=== PATIENT | male | born 1985 | race Two or more races ===

== ENCOUNTER → 2020-04-18 | Emergency (ER) | payer MEDICAID, OTHER ==
[~2020-04-18] VITALS: Ht 147.3 cm; Wt 49.9 kg
[2020-04-18 22:20] VITALS: BP 125/88
== END | disposition left against medical advice (07) ==
LOC: ER 22:02
DX: R09.89 Other specified symptoms and signs involving the circulatory and respiratory systems (principal); G80.9 Cerebral palsy, unspecified

== ENCOUNTER 2020-10-31 11:00 | Emergency (ER) | payer OTHER ==
[~2020-10-31] VITALS: Ht 152.4 cm; Wt 40.8 kg
[2020-10-31] MEDS ORDERED: SODIUM CHLORIDE 0.9% 1,000 ML IV ONE (11:30)
[2020-10-31 11:59] LABS: Basophils # (auto) 0 10 ^3/uL (0-0.2); Basophils % (auto) 0.7 % (0.0-2.0); Eosinophils # (auto) 0 10 ^3/uL (0-0.8); Eosinophils % (auto) 0.1 % (0.0-7.0); Lymphocytes % (auto) 13.2 % (10.0-50.0); Mean Corpuscular Hemoglobin 33.7 pg (28.0-32.0); Mean Corpuscular Volume 93.6 fL (80.0-100.0); Monocytes # (auto) 0.4 10 ^3/uL (0-1.3); Monocytes % (auto) 5.6 % (0.0-12.0); Neutrophils % (auto) 80.4 % (37.0-80.0); Platelet Count (auto) 200 10^3/uL (140-450); Red Blood Cells 4.16 10^6/uL (4.5-5.90); Red Cell Distribution Width 14.5 % (11.8-14.3); White Blood Cell 7.5 10^3/uL (4.4-10.8)
[2020-10-31 12:27] LABS: Albumin 3.1 g/dL (3.4-5.0); Blood Urea Nitrogen 7 mg/dL (7-18); Calcium 8.3 mg/dL (8.5-10.1); Carbon Dioxide 26 mmol/L (21-32); Glucose 89 mg/dL (74-106)
[2020-10-31 12:40] LABS: Alanine Aminotransferase 33 U/L (16-61); Alkaline Phosphatase 73 U/L (45-117); Anion Gap 5 (5-15); Aspartate Aminotransferase 44 U/L (15-37); BUN/Creatinine Ratio 19.4; Bilirubin, Total 1.9 mg/dL (0.2-1.0); Chloride 107 mmol/L (98-107); GFR African American 356 mL/min; GFR Non-African American 294 mL/min; Potassium 3.3 mmol/L (3.5-5.1); Sodium 138 mmol/L (136-145); Total Protein 7.4 g/dL (6.4-8.2)
[2020-10-31 14:58] VITALS: BP 109/73
== END 2020-10-31 15:22 | disposition home or self-care (01) ==
LOC: ER 11:00 → EDBD 11:00 → ER 15:22
DX: G40.409 Other generalized epilepsy and epileptic syndromes, not intractable, without status epilepticus (principal)
CPT/HCPCS: 36415; 70450; 71045; 80053; 84484; 85025; 93005; 96360; 96361; 99285; J7030

== ENCOUNTER 2020-11-11 10:46 | Inpatient (IN) | payer OTHER ==
[~2020-11-11] VITALS: Ht 147.3 cm; Wt 36.5 kg
[2020-11-11 12:39] LABS: Basophils # (auto) 0.1 10 ^3/uL (0-0.2); Basophils % (auto) 0.7 % (0.0-2.0); Eosinophils # (auto) 0 10 ^3/uL (0-0.8); Eosinophils % (auto) 0.1 % (0.0-7.0); Hematocrit 39.8 % (41.0-53.0); Hemoglobin 14.1 g/dL (13.5-17.5); Mean Corpuscular Hemoglobin 33.8 pg (28.0-32.0); Mean Corpuscular Hgb Conc. 35.4 g/dL (32.0-36.0); Mean Corpuscular Volume 95.5 fL (80.0-100.0); Monocytes # (auto) 0.5 10 ^3/uL (0-1.3); Monocytes % (auto) 5.3 % (0.0-12.0); Neutrophils % (auto) 81.9 % (37.0-80.0); Nucleated Red Blood Cells % 0.1 %; Platelet Count (auto) 235 10^3/uL (140-450); Red Blood Cells 4.17 10^6/uL (4.5-5.90); Red Cell Distribution Width 14.8 % (11.8-14.3); White Blood Cell 8.6 10^3/uL (4.4-10.8)
[2020-11-11 12:57] LABS: Albumin 3.3 g/dL (3.4-5.0); Calcium 8.9 mg/dL (8.5-10.1); Magnesium 2.4 mg/dL (1.6-2.6); Potassium 3.3 mmol/L (3.5-5.1)
[2020-11-11 13:01] LABS: BUN/Creatinine Ratio 18.6; Bilirubin, Total 0.9 mg/dL (0.2-1.0)
[2020-11-11] MEDS ORDERED: LEV50T PO (14:01)
[2020-11-11] MEDS ORDERED: CARB200T4 PO (14:01)
[2020-11-11] MEDS ORDERED: BACL20TA PO (14:01)
[2020-11-11] MEDS ORDERED: SODIUM CHLORIDE 0.9% 1,000 ML IV ONE ×2 (14:45→15:15)
[2020-11-11] MEDS ORDERED: ONDANSETRON HCL 4 MG/2 ML VIAL IV PRN (15:15)
[2020-11-11] MEDS ORDERED: LORazepam 2MG/ML-1ML VIAL IV PRN (15:15)
[2020-11-11] MEDS ORDERED: MORPHINE SULF INJ 2 MG/ML SYRINGE 1ML IV PRN (15:15)
[2020-11-11] MEDS ORDERED: NITROGLYCERIN 0.4 MG SL TAB SL PRN (15:15)
[2020-11-11] MEDS: POTASSIUM CHL 20MEQ/100ML 100 ML IV SCH ×2 (16:43→17:15)
[2020-11-11] MEDS: SODIUM CHLORIDE 0.9% 1,000 ML IV SCH (16:43)
[2020-11-11 16:55] LABS: INR 1.13 (0.9-1.15); Partial Thromboplastin Time 31.1 sec (23.0-31.2)
[2020-11-11] MEDS ORDERED: CHOL20007 PO (17:31)
[2020-11-11 21:36] VITALS: BP 120/74
[2020-11-11 23:30] LABS: Potassium 3.5 mmol/L (3.5-5.1)
[2020-11-12 05:00] VITALS: BP 130/94
[2020-11-12 06:22] LABS: Basophils # (auto) 0 10 ^3/uL (0-0.2); Eosinophils # (auto) 0 10 ^3/uL (0-0.8); Lymphocytes # (auto) 0.9 10 ^3/uL (0.4-5.4); Monocytes # (auto) 0.3 10 ^3/uL (0-1.3); Neutrophils # (auto) 5.4 10 ^3/uL (1.6-8.6); Platelet Count (auto) 185 10^3/uL (140-450); White Blood Cell 6.7 10^3/uL (4.4-10.8)
[2020-11-12 06:24] LABS: Basophils % (auto) 0.5 % (0.0-2.0); Eosinophils % (auto) 0.5 % (0.0-7.0); Hematocrit 31.4 % (41.0-53.0); Hemoglobin 11.4 g/dL (13.5-17.5); Lymphocytes % (auto) 13.8 % (10.0-50.0); Mean Corpuscular Hgb Conc. 36.2 g/dL (32.0-36.0); Mean Corpuscular Volume 96.7 fL (80.0-100.0); Monocytes % (auto) 4.5 % (0.0-12.0); Neutrophils % (auto) 80.7 % (37.0-80.0); Nucleated Red Blood Cells % 0.1 %; Red Blood Cells 3.25 10^6/uL (4.5-5.90); Red Cell Distribution Width 14.7 % (11.8-14.3)
[2020-11-12 06:31] LABS: Albumin 2.6 g/dL (3.4-5.0); Calcium 7.7 mg/dL (8.5-10.1); Potassium 3.4 mmol/L (3.5-5.1)
[2020-11-12 06:34] LABS: BUN/Creatinine Ratio 28.6; Bilirubin, Total 0.9 mg/dL (0.2-1.0); Total Protein 6.3 g/dL (6.4-8.2)
[2020-11-12] MEDS: SODIUM CHLORIDE 0.9% 1,000 ML IV SCH ×4 (06:56→23:26)
[2020-11-12 08:04] VITALS: BP 112/72
[2020-11-12] MEDS ORDERED: PANTOPRAZOLE 40 MG/10 ML VIAL INJ IV SCH (10:00)
[2020-11-12] MEDS: ENOXAPARIN SOD 40 MG/0.4 ML SYRINGE SC SCH (10:09)
[2020-11-12] MEDS ORDERED: LIDOCAINE VISCOUS 2% 15ML UD ONE (10:12)
[2020-11-12] MEDS ORDERED: MIDAZOLAM HCL 5 MG/ML-1ML VIAL ONE (10:13)
[2020-11-12] MEDS ORDERED: diphenhdrAMINE HCL 50 MG/1 ML VL ONE (10:13)
[2020-11-12] MEDS ORDERED: fentaNYL CITRATE 100 MCG/2 ML VL ONE (10:13)
[2020-11-12] MEDS ORDERED: POTASSIUM CHLORIDE 20 MEQ, LIDOCAINE 1% (LOCAL ANESTH.) 2 ML in SODIUM CHL 0.9% 100 ML IV ONE (10:15)
[2020-11-12] MEDS ORDERED: ceFAZolin 1GM/50ML 50 ML IV ONE (11:02)
[2020-11-12] MEDS ORDERED: fentaNYL CITRATE 100 MCG/2 ML VL IV ONE ×2 (11:05→11:09)
[2020-11-12] MEDS ORDERED: MIDAZOLAM HCL 5 MG/ML-1ML VIAL IV ONE ×2 (11:05→11:09)
[2020-11-12 11:59] VITALS: BP 122/77
[2020-11-12 16:17] VITALS: BP 124/83
[2020-11-12 22:00] VITALS: BP 115/76
[2020-11-12] MEDS: PANTOPRAZOLE 40 MG/10 ML VIAL INJ IV SCH (23:26)
[2020-11-13 05:00] VITALS: BP 113/76
[2020-11-13 08:35] LABS: Basophils # (auto) 0.1 10 ^3/uL (0-0.2); Basophils % (auto) 0.7 % (0.0-2.0); Eosinophils # (auto) 0 10 ^3/uL (0-0.8); Eosinophils % (auto) 0.4 % (0.0-7.0); Hematocrit 38.9 % (41.0-53.0); Hemoglobin 13.5 g/dL (13.5-17.5); Lymphocytes % (auto) 12.8 % (10.0-50.0); Mean Corpuscular Hemoglobin 33.8 pg (28.0-32.0); Mean Corpuscular Hgb Conc. 34.7 g/dL (32.0-36.0); Mean Corpuscular Volume 97.2 fL (80.0-100.0); Monocytes # (auto) 0.3 10 ^3/uL (0-1.3); Monocytes % (auto) 3.5 % (0.0-12.0); Neutrophils # (auto) 6.3 10 ^3/uL (1.6-8.6); Neutrophils % (auto) 82.6 % (37.0-80.0); Nucleated Red Blood Cells % 0.2 %; Platelet Count (auto) 190 10^3/uL (140-450); Red Blood Cells 4.01 10^6/uL (4.5-5.90); Red Cell Distribution Width 14.7 % (11.8-14.3); White Blood Cell 7.7 10^3/uL (4.4-10.8)
[2020-11-13 08:42] LABS: Albumin 2.7 g/dL (3.4-5.0); BUN/Creatinine Ratio 19.2; Calcium 8.3 mg/dL (8.5-10.1); Potassium 3.7 mmol/L (3.5-5.1)
[2020-11-13 08:44] LABS: Bilirubin, Total 1.1 mg/dL (0.2-1.0); Total Protein 6.5 g/dL (6.4-8.2)
[2020-11-13 08:45] VITALS: BP 106/76
[2020-11-13] MEDS: SODIUM CHLORIDE 0.9% 1,000 ML IV SCH (09:46)
[2020-11-13] MEDS: PANTOPRAZOLE 40 MG/10 ML VIAL INJ IV SCH ×2 (09:46→21:31)
[2020-11-13] MEDS: ENOXAPARIN SOD 40 MG/0.4 ML SYRINGE SC SCH (09:47)
[2020-11-13] MEDS: D5W/SOD CHLO 0.9% 1,000 ML IV SCH ×2 (11:56→21:31)
[2020-11-13 13:00] VITALS: BP 108/71
[2020-11-13 17:15] VITALS: BP 98/58
[2020-11-14] MEDS: D5W/SOD CHLO 0.9% 1,000 ML IV SCH ×2 (03:24→11:45)
[2020-11-14 06:14] LABS: Eosinophils # (auto) 0.1 10 ^3/uL (0-0.8); Hemoglobin 11.4 g/dL (13.5-17.5); Monocytes # (auto) 0.4 10 ^3/uL (0-1.3)
[2020-11-14 06:17] LABS: Monocytes % (auto) 5.6 % (0.0-12.0); Red Cell Distribution Width 14.5 % (11.8-14.3)
[2020-11-14 06:42] LABS: BUN/Creatinine Ratio 4.8; Calcium 7.6 mg/dL (8.5-10.1)
[2020-11-14 06:44] LABS: Potassium 2.7 mmol/L (3.5-5.1)
[2020-11-14 07:21] LABS: Basophils # (auto) 0.1 10 ^3/uL (0-0.2); Basophils % (auto) 0.8 % (0.0-2.0); Eosinophils % (auto) 1.2 % (0.0-7.0); Hematocrit 31.4 % (41.0-53.0); Lymphocytes # (auto) 1.7 10 ^3/uL (0.4-5.4); Lymphocytes % (auto) 24.9 % (10.0-50.0); Mean Corpuscular Hemoglobin 34.1 pg (28.0-32.0); Mean Corpuscular Hgb Conc. 36.2 g/dL (32.0-36.0); Mean Corpuscular Volume 94.1 fL (80.0-100.0); Neutrophils # (auto) 4.6 10 ^3/uL (1.6-8.6); Neutrophils % (auto) 67.5 % (37.0-80.0); Red Blood Cells 3.34 10^6/uL (4.5-5.90); White Blood Cell 6.8 10^3/uL (4.4-10.8)
[2020-11-14 07:22] LABS: Platelet Count (auto) 186 10^3/uL (140-450)
[2020-11-14 08:00] VITALS: BP 112/67
[2020-11-14] MEDS: POTASSIUM CHL 20MEQ/100ML 100 ML IV SCH ×2 (08:26→10:08)
[2020-11-14] MEDS: PANTOPRAZOLE 40 MG/10 ML VIAL INJ IV SCH ×2 (10:11→21:18)
[2020-11-14] MEDS: ENOXAPARIN SOD 40 MG/0.4 ML SYRINGE SC SCH (10:12)
[2020-11-14 12:00] VITALS: BP 117/74
[2020-11-14] MEDS: D5W/ SOD CHL 0.9%/KCL 20MEQ 1,000 ML IV SCH (14:00)
[2020-11-14 16:00] VITALS: BP 117/64
[2020-11-14 19:07] LABS: Anion Gap 8 (5-15); Blood Urea Nitrogen < 1 mg/dL (7-18); Calcium 8.3 mg/dL (8.5-10.1); Carbon Dioxide 25 mmol/L (21-32); Chloride 105 mmol/L (98-107); Glucose 94 mg/dL (74-106); Potassium 3.3 mmol/L (3.5-5.1); Sodium 138 mmol/L (136-145)
[2020-11-14 19:09] LABS: BUN/Creatinine Ratio 3.8; GFR African American 518 mL/min; GFR Non-African American 428 mL/min
[2020-11-14 21:52] VITALS: BP 89/51
[2020-11-15] VITALS (7 sets, daily range): BP systolic 97–121; BP diastolic 68–69
[2020-11-15 05:47] LABS: INR 1.16 (0.9-1.15)
[2020-11-15 05:56] LABS: Albumin 2.5 g/dL (3.4-5.0); Calcium 7.9 mg/dL (8.5-10.1); Potassium 3.4 mmol/L (3.5-5.1)
[2020-11-15 05:59] LABS: BUN/Creatinine Ratio 4.2; Bilirubin, Total 0.9 mg/dL (0.2-1.0); Total Protein 6.1 g/dL (6.4-8.2)
[2020-11-15 06:18] LABS: Basophils # (auto) 0 10 ^3/uL (0-0.2); Basophils % (auto) 0.7 % (0.0-2.0); Eosinophils # (auto) 0.1 10 ^3/uL (0-0.8); Eosinophils % (auto) 1.5 % (0.0-7.0); Hematocrit 34.4 % (41.0-53.0); Lymphocytes # (auto) 1.3 10 ^3/uL (0.4-5.4); Lymphocytes % (auto) 20.2 % (10.0-50.0); Mean Corpuscular Hgb Conc. 34.9 g/dL (32.0-36.0); Mean Corpuscular Volume 94.6 fL (80.0-100.0); Monocytes # (auto) 0.3 10 ^3/uL (0-1.3); Monocytes % (auto) 5.3 % (0.0-12.0); Neutrophils # (auto) 4.7 10 ^3/uL (1.6-8.6); Neutrophils % (auto) 72.3 % (37.0-80.0); Nucleated Red Blood Cells % 0.1 %; Platelet Count (auto) 183 10^3/uL (140-450); Red Blood Cells 3.64 10^6/uL (4.5-5.90); Red Cell Distribution Width 14.7 % (11.8-14.3); White Blood Cell 6.5 10^3/uL (4.4-10.8)
[2020-11-15] MEDS: PANTOPRAZOLE 40 MG/10 ML VIAL INJ IV SCH ×2 (11:01→21:26)
[2020-11-15] MEDS: D5W/ SOD CHL 0.9%/KCL 20MEQ 1,000 ML IV SCH ×2 (11:01→20:07)
[2020-11-15] MEDS: ENOXAPARIN SOD 40 MG/0.4 ML SYRINGE SC SCH (11:02)
[2020-11-15] MEDS ORDERED: POTASSIUM CHLORIDE 20 MEQ, LIDOCAINE 1% (LOCAL ANESTH.) 2 ML in SODIUM CHL 0.9% 100 ML IV ONE (14:00)
[2020-11-15] MEDS ORDERED: PPN PER PHARMACY 0 ML IV SCH (15:00)
[2020-11-15 15:28] LABS: Magnesium 1.7 mg/dL (1.6-2.6)
[2020-11-15 15:31] LABS: Pre Albumin 9.2 mg/dL (20.0-40.0)
[2020-11-15] MEDS ORDERED: DEXTROSE (50%) 50ML SYRG IV SCH (18:00)
[2020-11-15] MEDS: ACCU-CHEK COMFORT CURVE STRIP VI SCH (18:00)
[2020-11-15] MEDS: InsuLIN REG 1unit/0.01ml Soln (100units/ml) SC SCH (18:30)
[2020-11-15] MEDS ORDERED: AMINO ACID INFUSION IN D5W 2,000 ML IV NR (20:00)
[2020-11-16] MEDS: ACCU-CHEK COMFORT CURVE STRIP VI SCH ×5 (00:15→23:44)
[2020-11-16] MEDS: D5W/ SOD CHL 0.9%/KCL 20MEQ 1,000 ML IV SCH ×2 (04:08→10:15)
[2020-11-16 05:30] VITALS: BP 79/46
[2020-11-16 05:30] LABS: Albumin 2.7 g/dL (3.4-5.0); Magnesium 1.5 mg/dL (1.6-2.6); Potassium 3.6 mmol/L (3.5-5.1)
[2020-11-16 05:36] LABS: BUN/Creatinine Ratio 17.9; Bilirubin, Total 1.1 mg/dL (0.2-1.0); Phosphorus 2.1 mg/dL (2.5-4.90); Total Protein 6.6 g/dL (6.4-8.2)
[2020-11-16] MEDS: InsuLIN REG 1unit/0.01ml Soln (100units/ml) SC SCH ×5 (06:00→23:44)
[2020-11-16 08:00] VITALS: BP 85/65
[2020-11-16 09:00] VITALS: BP 85/65
[2020-11-16] MEDS ORDERED: SODIUM PHOSP 40 MEQ in D5W 5% 250 ML IV ONE (10:15)
[2020-11-16] MEDS: PANTOPRAZOLE 40 MG/10 ML VIAL INJ IV SCH ×2 (10:20→21:41)
[2020-11-16] MEDS: ENOXAPARIN SOD 40 MG/0.4 ML SYRINGE SC SCH (10:20)
[2020-11-16] MEDS ORDERED: fentaNYL CITRATE 100 MCG/2 ML VL ONE (12:00)
[2020-11-16] MEDS ORDERED: GLYCOPYRROLATE 0.2 MG/ML 1ML VIAL ONE (12:01)
[2020-11-16] MEDS ORDERED: ROCURONIUM 10MG/ML 10ML VIAL IV ONE (12:01)
[2020-11-16] MEDS ORDERED: SODIUM CHLORIDE LOCK 10 ML ONE (12:01)
[2020-11-16] MEDS ORDERED: ONDANSETRON HCL 4 MG/2 ML VIAL ONE (12:01)
[2020-11-16] MEDS ORDERED: PROPOFOL 10 MG/ML 20 ML IV ONE (12:01)
[2020-11-16] MEDS ORDERED: MIDAZOLAM HCL 1MG/1ML-2 ML VIAL ONE (12:01)
[2020-11-16] MEDS ORDERED: NEOSTIGMINE 1 MG/ML INJ (10mg/10ML VIAL) ONE (12:01)
[2020-11-16] MEDS ORDERED: LIDOCAINE HCL 2% TOP JELLY 5ML TOP ONE (12:03)
[2020-11-16 13:00] VITALS: BP 102/62
[2020-11-16] MEDS ORDERED: LIDOCAINE 1% HCL (LOCAL ANESTH.) INJ 20ML MDV ONE (13:09)
[2020-11-16] MEDS ORDERED: ceFAZolin 1GM/50ML 50 ML IV ONE (13:10)
[2020-11-16] MEDS ORDERED: SUCCINYLCHOLINE CHLORIDE 20 MG/ML 10ML VIAL IV ONE (13:29)
[2020-11-16 17:15] VITALS: BP 133/83
[2020-11-16] MEDS ORDERED: PPN PER PHARMACY IV NR ×9 (20:00)
[2020-11-16] MEDS: CLINDAMYCIN 300MG IV 50 ML IV SCH (21:41)
[2020-11-17 05:00] VITALS: BP 101/55
[2020-11-17 05:33] LABS: Albumin 2.2 g/dL (3.4-5.0); Calcium 7.6 mg/dL (8.5-10.1); Magnesium 1.7 mg/dL (1.6-2.6); Potassium 3.1 mmol/L (3.5-5.1)
[2020-11-17] MEDS: InsuLIN REG 1unit/0.01ml Soln (100units/ml) SC SCH ×4 (05:36→23:41)
[2020-11-17] MEDS: ACCU-CHEK COMFORT CURVE STRIP VI SCH ×4 (05:36→23:41)
[2020-11-17] MEDS: CLINDAMYCIN 300MG IV 50 ML IV SCH ×3 (05:38→21:56)
[2020-11-17 05:41] LABS: BUN/Creatinine Ratio 31.8; Phosphorus 3.3 mg/dL (2.5-4.90); Total Protein 5.8 g/dL (6.4-8.2)
[2020-11-17] MEDS: POTASSIUM CHL 20MEQ/100ML 100 ML IV SCH ×2 (08:15→10:15)
[2020-11-17 09:00] VITALS: BP 98/55
[2020-11-17] MEDS ORDERED: POTASSIUM CHLORIDE 20 MEQ, LIDOCAINE 1% (LOCAL ANESTH.) 2 ML in SODIUM CHL 0.9% 100 ML IV ONE (09:45)
[2020-11-17] MEDS: PANTOPRAZOLE 40 MG/10 ML VIAL INJ IV SCH ×2 (09:56→21:58)
[2020-11-17] MEDS: ENOXAPARIN SOD 40 MG/0.4 ML SYRINGE SC SCH (09:57)
[2020-11-17] MEDS: cefTRIAXone 1GM/50ML D5W 50 ML IV SCH (09:58)
[2020-11-17] MEDS: D5W/ SOD CHL 0.9%/KCL 20MEQ 1,000 ML IV SCH (10:15)
[2020-11-17 13:00] VITALS: BP 99/54
[2020-11-17 16:29] VITALS: BP 101/58
[2020-11-17 19:12] LABS: Calcium 7.4 mg/dL (8.5-10.1); Potassium 3.2 mmol/L (3.5-5.1)
[2020-11-17 19:14] LABS: BUN/Creatinine Ratio 38.9
[2020-11-17 20:00] VITALS: BP 139/49
[2020-11-17] MEDS: PPN PER PHARMACY IV NR ×9 (20:14)
[2020-11-17 22:00] VITALS: BP 139/49
[2020-11-18 05:00] VITALS: BP 138/57
[2020-11-18 05:54] LABS: Basophils # (auto) 0 10 ^3/uL (0-0.2); Basophils % (auto) 0.2 % (0.0-2.0); Eosinophils # (auto) 0 10 ^3/uL (0-0.8); Eosinophils % (auto) 0.6 % (0.0-7.0); Hematocrit 26.8 % (41.0-53.0); Hemoglobin 9.7 g/dL (13.5-17.5); Lymphocytes # (auto) 0.8 10 ^3/uL (0.4-5.4); Lymphocytes % (auto) 9.9 % (10.0-50.0); Mean Corpuscular Hgb Conc. 36.2 g/dL (32.0-36.0); Mean Corpuscular Volume 93.9 fL (80.0-100.0); Monocytes # (auto) 0.3 10 ^3/uL (0-1.3); Monocytes % (auto) 3.7 % (0.0-12.0); Neutrophils # (auto) 7.1 10 ^3/uL (1.6-8.6); Neutrophils % (auto) 85.6 % (37.0-80.0); Platelet Count (auto) 140 10^3/uL (140-450); Red Blood Cells 2.85 10^6/uL (4.5-5.90); Red Cell Distribution Width 14.5 % (11.8-14.3); White Blood Cell 8.3 10^3/uL (4.4-10.8)
[2020-11-18] MEDS: InsuLIN REG 1unit/0.01ml Soln (100units/ml) SC SCH ×3 (06:00→18:00)
[2020-11-18 06:07] LABS: Alanine Aminotransferase 25 U/L (16-61); Albumin 2.1 g/dL (3.4-5.0); Anion Gap 4 (5-15); Blood Urea Nitrogen 6 mg/dL (7-18); Calcium 6.9 mg/dL (8.5-10.1); Carbon Dioxide 26 mmol/L (21-32); Chloride 108 mmol/L (98-107); Glucose 103 mg/dL (74-106); Magnesium 2.1 mg/dL (1.6-2.6); Potassium 3.4 mmol/L (3.5-5.1); Sodium 138 mmol/L (136-145)
[2020-11-18] MEDS: CLINDAMYCIN 300MG IV 50 ML IV SCH (06:08)
[2020-11-18 06:10] LABS: Alkaline Phosphatase 60 U/L (45-117); Aspartate Aminotransferase 30 U/L (15-37); Bilirubin, Total 0.6 mg/dL (0.2-1.0); GFR African American 977 mL/min; GFR Non-African American 807 mL/min; Total Protein 5.3 g/dL (6.4-8.2)
[2020-11-18] MEDS: ACCU-CHEK COMFORT CURVE STRIP VI SCH ×3 (06:30→18:02)
[2020-11-18 09:00] VITALS: BP 108/71
[2020-11-18] MEDS: cefTRIAXone 1GM/50ML D5W 50 ML IV SCH (09:30)
[2020-11-18] MEDS: PANTOPRAZOLE 40 MG/10 ML VIAL INJ IV SCH ×2 (09:47→22:06)
[2020-11-18] MEDS: ENOXAPARIN SOD 40 MG/0.4 ML SYRINGE SC SCH (09:48)
[2020-11-18] MEDS: D5W/ SOD CHL 0.9%/KCL 20MEQ 1,000 ML IV SCH (09:48)
[2020-11-18] MEDS ORDERED: POTASSIUM PHOSP 26.4MEQ(18MMOL) IN NS 100 ML IV ONE (10:45)
[2020-11-18 12:00] VITALS: BP 103/60
[2020-11-18] MEDS: AMOXICILLIN 200MG/5ml ORAL Susp 50ML GT SCH ×2 (12:09→18:20)
[2020-11-18] MEDS: CLARITHROMYCIN 500 MG TAB PO SCH ×2 (12:30→22:06)
[2020-11-18 16:00] VITALS: BP 108/63
[2020-11-18] MEDS: PPN PER PHARMACY IV NR ×9 (19:49)
[2020-11-18] MEDS ORDERED: PPN PER PHARMACY IV NR ×9 (20:00)
[2020-11-18 22:17] VITALS: BP 99/62
[2020-11-18] MEDS ORDERED: AMOXICILLIN 200MG/5ml ORAL Susp 50ML ONE (23:59)
[2020-11-19] MEDS: ACCU-CHEK COMFORT CURVE STRIP VI SCH ×4 (00:28→18:02)
[2020-11-19] MEDS: AMOXICILLIN 200MG/5ml ORAL Susp 50ML GT SCH ×4 (00:28→18:00)
[2020-11-19 05:03] VITALS: BP 111/65
[2020-11-19 05:26] LABS: Basophils # (auto) 0 10 ^3/uL (0-0.2); Eosinophils # (auto) 0.1 10 ^3/uL (0-0.8); Eosinophils % (auto) 1.8 % (0.0-7.0); Lymphocytes # (auto) 1.1 10 ^3/uL (0.4-5.4); Monocytes # (auto) 0.4 10 ^3/uL (0-1.3)
[2020-11-19 05:28] LABS: Basophils % (auto) 0.5 % (0.0-2.0); Hematocrit 29.6 % (41.0-53.0); Lymphocytes % (auto) 14.3 % (10.0-50.0); Mean Corpuscular Hemoglobin 34.2 pg (28.0-32.0); Mean Corpuscular Hgb Conc. 37.1 g/dL (32.0-36.0); Mean Corpuscular Volume 92.2 fL (80.0-100.0); Monocytes % (auto) 4.8 % (0.0-12.0); Neutrophils # (auto) 5.9 10 ^3/uL (1.6-8.6); Neutrophils % (auto) 78.6 % (37.0-80.0); Platelet Count (auto) 153 10^3/uL (140-450); Red Blood Cells 3.21 10^6/uL (4.5-5.90); Red Cell Distribution Width 14.7 % (11.8-14.3); White Blood Cell 7.5 10^3/uL (4.4-10.8)
[2020-11-19] MEDS: InsuLIN REG 1unit/0.01ml Soln (100units/ml) SC SCH ×4 (06:00→18:00)
[2020-11-19 08:24] LABS: Phosphorus 2.4 mg/dL (2.5-4.90)
[2020-11-19 08:36] LABS: Albumin 2.3 g/dL (3.4-5.0); Anion Gap 7 (5-15); Blood Urea Nitrogen 5 mg/dL (7-18); Calcium 7.5 mg/dL (8.5-10.1); Carbon Dioxide 22 mmol/L (21-32); Chloride 107 mmol/L (98-107); Glucose 95 mg/dL (74-106); Sodium 136 mmol/L (136-145)
[2020-11-19 08:39] LABS: Alanine Aminotransferase 32 U/L (16-61); Alkaline Phosphatase 66 U/L (45-117); Aspartate Aminotransferase 30 U/L (15-37); BUN/Creatinine Ratio 33.3; Bilirubin, Total 0.8 mg/dL (0.2-1.0); GFR African American 977 mL/min; GFR Non-African American 807 mL/min; Total Protein 6.3 g/dL (6.4-8.2)
[2020-11-19 08:47] VITALS: BP 113/61
[2020-11-19 08:54] LABS: Magnesium 2.2 mg/dL (1.6-2.6)
[2020-11-19] MEDS: ENOXAPARIN SOD 40 MG/0.4 ML SYRINGE SC SCH (10:06)
[2020-11-19] MEDS: PANTOPRAZOLE 40 MG/10 ML VIAL INJ IV SCH ×2 (10:06→22:16)
[2020-11-19] MEDS: D5W/ SOD CHL 0.9%/KCL 20MEQ 1,000 ML IV SCH (10:30)
[2020-11-19] MEDS: CLARITHROMYCIN 500 MG TAB PO SCH ×2 (10:45→22:17)
[2020-11-19] MEDS ORDERED: SODIUM PHOSPHATES 20 MEQ in SODIUM CHL 0.9% 100 ML IV ONE (11:00)
[2020-11-19] MEDS ORDERED: Jevity 1.2 Cal/Fiber 1 Liter GT SCH (11:45)
[2020-11-19 12:41] VITALS: BP 121/59
[2020-11-19] MEDS: MORPHINE SULF INJ 2 MG/ML SYRINGE 1ML IV PRN (12:52)
[2020-11-19 17:06] VITALS: BP 107/62
[2020-11-19 20:00] VITALS: BP 110/69
[2020-11-19] MEDS ORDERED: PPN PER PHARMACY IV NR ×9 (20:00)
[2020-11-19 22:00] VITALS: BP 110/69
[2020-11-20] VITALS (7 sets, daily range): BP systolic 96–109; BP diastolic 56–63
[2020-11-20] MEDS: ACCU-CHEK COMFORT CURVE STRIP VI SCH ×5 (00:01→23:40)
[2020-11-20] MEDS: MORPHINE SULF INJ 2 MG/ML SYRINGE 1ML IV PRN (03:31)
[2020-11-20 05:15] LABS: Basophils # (auto) 0 10 ^3/uL (0-0.2); Basophils % (auto) 0.8 % (0.0-2.0); Eosinophils # (auto) 0.1 10 ^3/uL (0-0.8); Eosinophils % (auto) 1.2 % (0.0-7.0); Hematocrit 28.7 % (41.0-53.0); Hemoglobin 10.4 g/dL (13.5-17.5); Lymphocytes # (auto) 0.6 10 ^3/uL (0.4-5.4); Lymphocytes % (auto) 10.5 % (10.0-50.0); Mean Corpuscular Hemoglobin 33.8 pg (28.0-32.0); Mean Corpuscular Hgb Conc. 36.1 g/dL (32.0-36.0); Mean Corpuscular Volume 93.6 fL (80.0-100.0); Monocytes # (auto) 0.3 10 ^3/uL (0-1.3); Monocytes % (auto) 5.8 % (0.0-12.0); Neutrophils # (auto) 4.8 10 ^3/uL (1.6-8.6); Neutrophils % (auto) 81.7 % (37.0-80.0); Nucleated Red Blood Cells % 0.1 %; Platelet Count (auto) 161 10^3/uL (140-450); Red Blood Cells 3.06 10^6/uL (4.5-5.90); Red Cell Distribution Width 14.3 % (11.8-14.3); White Blood Cell 5.9 10^3/uL (4.4-10.8)
[2020-11-20] MEDS: InsuLIN REG 1unit/0.01ml Soln (100units/ml) SC SCH ×5 (06:00→23:40)
[2020-11-20 06:01] LABS: Sodium 138 mmol/L (136-145)
[2020-11-20 06:02] LABS: Alanine Aminotransferase 36 U/L (16-61); Alkaline Phosphatase 59 U/L (45-117); Anion Gap 7 (5-15); Aspartate Aminotransferase 29 U/L (15-37); BUN/Creatinine Ratio 33.3; Bilirubin, Total 0.8 mg/dL (0.2-1.0); Blood Urea Nitrogen 7 mg/dL (7-18); Calcium 7.5 mg/dL (8.5-10.1); Carbon Dioxide 25 mmol/L (21-32); Chloride 106 mmol/L (98-107); GFR African American 662 mL/min; GFR Non-African American 547 mL/min; Glucose 108 mg/dL (74-106); Potassium 3.8 mmol/L (3.5-5.1)
[2020-11-20 06:03] LABS: Albumin 2.2 g/dL (3.4-5.0); Magnesium 2.3 mg/dL (1.6-2.6); Total Protein 6.1 g/dL (6.4-8.2)
[2020-11-20] MEDS: AMOXICILLIN 200MG/5ml ORAL Susp 50ML GT SCH ×5 (06:12→23:40)
[2020-11-20] MEDS: CLARITHROMYCIN 500 MG TAB PO SCH ×2 (09:33→22:10)
[2020-11-20] MEDS: PANTOPRAZOLE 40 MG/10 ML VIAL INJ IV SCH ×2 (09:33→22:10)
[2020-11-20] MEDS: D5W/ SOD CHL 0.9%/KCL 20MEQ 1,000 ML IV SCH (09:34)
[2020-11-20] MEDS: ENOXAPARIN SOD 40 MG/0.4 ML SYRINGE SC SCH (09:34)
[2020-11-20] MEDS ORDERED: PPN PER PHARMACY IV NR ×9 (20:00)
[2020-11-21 05:00] VITALS: BP 95/59
[2020-11-21 05:30] LABS: Eosinophils # (auto) 0.2 10 ^3/uL (0-0.8); Eosinophils % (auto) 2.9 % (0.0-7.0); Lymphocytes # (auto) 1.1 10 ^3/uL (0.4-5.4); Monocytes # (auto) 0.4 10 ^3/uL (0-1.3); Nucleated Red Blood Cells % 0.1 %; White Blood Cell 5.4 10^3/uL (4.4-10.8)
[2020-11-21] MEDS: AMOXICILLIN 200MG/5ml ORAL Susp 50ML GT SCH ×3 (05:31→18:06)
[2020-11-21 05:33] LABS: Basophils # (auto) 0 10 ^3/uL (0-0.2); Basophils % (auto) 0.8 % (0.0-2.0); Hematocrit 30.4 % (41.0-53.0); Hemoglobin 10.5 g/dL (13.5-17.5); Lymphocytes % (auto) 20.6 % (10.0-50.0); Mean Corpuscular Hemoglobin 34.5 pg (28.0-32.0); Mean Corpuscular Hgb Conc. 34.7 g/dL (32.0-36.0); Mean Corpuscular Volume 99.6 fL (80.0-100.0); Monocytes % (auto) 7.2 % (0.0-12.0); Neutrophils # (auto) 3.7 10 ^3/uL (1.6-8.6); Neutrophils % (auto) 68.5 % (37.0-80.0); Platelet Count (auto) 127 10^3/uL (140-450); Red Blood Cells 3.05 10^6/uL (4.5-5.90); Red Cell Distribution Width 14.4 % (11.8-14.3)
[2020-11-21 05:50] LABS: Albumin 2.2 g/dL (3.4-5.0); Anion Gap 5 (5-15); Blood Urea Nitrogen 6 mg/dL (7-18); Calcium 7.6 mg/dL (8.5-10.1); Carbon Dioxide 24 mmol/L (21-32); Chloride 105 mmol/L (98-107); Glucose 103 mg/dL (74-106); Magnesium 2.1 mg/dL (1.6-2.6); Potassium 4.3 mmol/L (3.5-5.1); Sodium 134 mmol/L (136-145)
[2020-11-21 05:52] LABS: Alanine Aminotransferase 48 U/L (16-61); Aspartate Aminotransferase 37 U/L (15-37); BUN/Creatinine Ratio 35.3; GFR African American 845 mL/min; GFR Non-African American 698 mL/min
[2020-11-21 05:55] LABS: Alkaline Phosphatase 63 U/L (45-117); Bilirubin, Total 0.7 mg/dL (0.2-1.0); Phosphorus 2.5 mg/dL (2.5-4.90); Total Protein 6.1 g/dL (6.4-8.2)
[2020-11-21] MEDS: InsuLIN REG 1unit/0.01ml Soln (100units/ml) SC SCH ×3 (06:00→18:00)
[2020-11-21] MEDS: ACCU-CHEK COMFORT CURVE STRIP VI SCH ×3 (06:00→18:52)
[2020-11-21 08:33] VITALS: BP 112/75
[2020-11-21] MEDS: ENOXAPARIN SOD 40 MG/0.4 ML SYRINGE SC SCH (10:00)
[2020-11-21] MEDS: D5W/ SOD CHL 0.9%/KCL 20MEQ 1,000 ML IV SCH (10:15)
[2020-11-21] MEDS: PANTOPRAZOLE 40 MG/10 ML VIAL INJ IV SCH ×2 (11:38→22:37)
[2020-11-21] MEDS: CLARITHROMYCIN 500 MG TAB PO SCH ×2 (11:47→22:37)
[2020-11-21 13:00] VITALS: BP 106/63
[2020-11-21 16:53] VITALS: BP 100/60
[2020-11-21] MEDS: MORPHINE SULF INJ 2 MG/ML SYRINGE 1ML IV PRN (18:13)
[2020-11-21] MEDS ORDERED: PPN PER PHARMACY IV NR ×10 (20:00)
[2020-11-21 21:32] VITALS: BP 104/57
[2020-11-21 22:00] VITALS: BP 104/57
== END 2020-11-21 23:20 | disposition home health service (06) | DRG 241 ==
LOC: ER 10:46 → EDBD 10:46 → OVERFLOW 10:47 → CENTRAL 20:15
PROVIDERS: ADMIT Family Medicine; ATTEND Internal Medicine
PROC: 0DB68ZX Excision of Stomach, Via Natural or Artificial Opening Endoscopic, Diagnostic (ICD-10-PCS; principal; 2020-11-12 11:00)
PROC: 05H933Z Insertion of Infusion Device into Right Brachial Vein, Percutaneous Approach (ICD-10-PCS; 2020-11-16)
PROC: B54MZZA Ultrasonography of Right Upper Extremity Veins, Guidance (ICD-10-PCS; 2020-11-16)
PROC: 0DH64UZ Insertion of Feeding Device into Stomach, Percutaneous Endoscopic Approach (ICD-10-PCS; 2020-11-16 12:49)
DX: K29.70 Gastritis, unspecified, without bleeding (principal); R13.19 Other dysphagia; E43 Unspecified severe protein-calorie malnutrition; G80.9 Cerebral palsy, unspecified; K59.00 Constipation, unspecified; E86.0 Dehydration; L89.329 Pressure ulcer of left buttock, unspecified stage; E03.9 Hypothyroidism, unspecified; E87.6 Hypokalemia; G40.909 Epilepsy, unspecified, not intractable, without status epilepticus; D63.8 Anemia in other chronic diseases classified elsewhere; L89.890 Pressure ulcer of other site, unstageable; B96.81 Helicobacter pylori [H. pylori] as the cause of diseases classified elsewhere; Z20.822 Contact with and (suspected) exposure to COVID-19; L98.491 Non-pressure chronic ulcer of skin of other sites limited to breakdown of skin; Z74.01 Bed confinement status; Z68.1 Body mass index [BMI] 19.9 or less, adult
CPT/HCPCS: 36415; 43239; 71045; 80048; 80051; 80053; 82040; 82962; 83735; 84100; 84443; 84478; 85025; 85610; 85730; 86850; 86900; 86901; 87077; 87186; 87205; 92610; 96360; 96361; C9113; G0378; J0330; J0690; J0696; J1815; J2001; J2250; J2405; J2704; J3480; J3490; J7060; J7131

== ENCOUNTER 2020-11-28 22:29 | Emergency (ER) | payer OTHER ==
[~2020-11-28] VITALS: Ht 162.6 cm; Wt 40.8 kg
[~2020-11-28 22:29] MED LIST: BACL20TA PO; CARB200T4 PO; CHOL20007 PO; LEV50T PO
[2020-11-28 22:52] LABS: Urine Bacteria FEW /hpf (None Seen); Urine Blood 2+ /uL (Negative); Urine Hyaline Cast FEW /lpf (0 - 2); Urine Mucus FEW (None Seen); Urine Specific Gravity 1.028 (1.001-1.035); Urine WBC 7 /hpf (0 - 3)
[2020-11-28 23:38] LABS: Basophils # (auto) 0.1 10 ^3/uL (0-0.2); Basophils % (auto) 0.7 % (0.0-2.0); Eosinophils # (auto) 0.1 10 ^3/uL (0-0.8); Eosinophils % (auto) 0.7 % (0.0-7.0); Hematocrit 35.3 % (41.0-53.0); Hemoglobin 12.5 g/dL (13.5-17.5); Lymphocytes # (auto) 1.3 10 ^3/uL (0.4-5.4); Lymphocytes % (auto) 14.5 % (10.0-50.0); Mean Corpuscular Hemoglobin 33.4 pg (28.0-32.0); Mean Corpuscular Hgb Conc. 35.3 g/dL (32.0-36.0); Mean Corpuscular Volume 94.5 fL (80.0-100.0); Monocytes # (auto) 0.3 10 ^3/uL (0-1.3); Monocytes % (auto) 3.7 % (0.0-12.0); Neutrophils # (auto) 7.2 10 ^3/uL (1.6-8.6); Neutrophils % (auto) 80.4 % (37.0-80.0); Platelet Count (auto) 273 10^3/uL (140-450); Red Blood Cells 3.74 10^6/uL (4.5-5.90); Red Cell Distribution Width 15.3 % (11.8-14.3); White Blood Cell 8.9 10^3/uL (4.4-10.8)
[2020-11-28] MEDS ORDERED: ONDANSETRON HCL 4 MG/2 ML VIAL IV ONE (23:45)
[2020-11-28] MEDS ORDERED: MORPHINE SULF INJ 2 MG/ML SYRINGE 1ML IV ONE (23:45)
[2020-11-28] MEDS ORDERED: SODIUM CHLORIDE 0.9% 1,000 ML IV ONE (23:45)
[2020-11-28] MEDS ORDERED: cefTRIAXone 1GM/50ML D5W 50 ML IV ONE (23:45)
[2020-11-29 00:03] LABS: Albumin 3.1 g/dL (3.4-5.0); Calcium 8.9 mg/dL (8.5-10.1); Potassium 4.6 mmol/L (3.5-5.1)
[2020-11-29 00:06] LABS: BUN/Creatinine Ratio 19.6
[2020-11-29 00:57] VITALS: BP 122/78
== END 2020-11-29 01:12 | disposition home or self-care (01) ==
LOC: ER 22:31
DX: N30.91 Cystitis, unspecified with hematuria (principal); G80.9 Cerebral palsy, unspecified; Z79.899 Other long term (current) drug therapy
CPT/HCPCS: 36415; 80053; 81001; 85025; 96365; 96375; 99284; J0696; J2270; J2405; J7030

== ENCOUNTER 2021-01-03 22:53 | Emergency (ER) | payer OTHER ==
[~2021-01-03] VITALS: Ht 157.5 cm; Wt 40.8 kg
[2021-01-03 23:05] VITALS: BP 97/73
== END 2021-01-04 00:35 | disposition home or self-care (01) ==
LOC: ER 22:55
DX: K94.23 Gastrostomy malfunction (principal); G82.50 Quadriplegia, unspecified
CPT/HCPCS: 82962